=== PATIENT | female | born 1940 | race American Indian/Alaskan Native ===

== ENCOUNTER 2019-03-24 09:10 | Emergency (ER) | payer SELFPAY ==
[2019-03-24] MEDS ORDERED: TORADOL IV ONE (09:34)
[2019-03-24] MEDS ORDERED: DILAUDID IV ONE (09:35)
[2019-03-24] MEDS ORDERED: COREG PO ONE (09:35)
--- NOTE | 2019-03-24 09:38 | Emergency Department Report ---
ED Headache HPI - General Chief Complaint: Headache Stated Complaint: HEADACHE Time Seen by Provider: 03/24/19 09:20 Source: patient Exam Limitations: no limitations - History of Present Illness Initial Comments: 78-year-old female has a history of hypertension, breast cancer currently in remission presents to the Hospital complaints of headache since yesterday evening. Pain is in the front part of her head and radiates to the top. It is constant with a aggravating or alleviating factors. Pain rated 10/10 in intensity. No nausea, vomiting, acute visual changes, or focal weakness/numbness reported. Symptoms started after receiving intra-articular injections to her knees for chronic pain. Patient states she was warned that her sugar and her blood pressure may increase after the injection. She has had similar injections in the past without these side effects. Patient has taken Percocet 5/325 mg without improvement in headache. She did not have her blood pressure medication carvedilol 12.5 mg twice a day dose today. Allergies/Adverse Reactions: Allergies Iodinated Contrast- Oral and IV Dye Allergy (Verified 03/24/19 09:23) Hives Penicillins Allergy (Verified 03/24/19 09:23) Hives diphenhydramine [From Benadryl] Adverse Reaction (Verified 03/24/19 09:23) Unknown Home Medications: Ambulatory Orders Carvedilol [Coreg] 12.5 mg PO BID 03/24/19 Donepezil [Aricept] 5 mg PO HS 03/24/19 Levothyroxine [Synthroid] 25 mcg PO QDAY 03/24/19 Oxybutynin Xl [Ditropan Xl] 5 mg PO DAILY 03/24/19 Rosuvastatin Calcium [Crestor] 40 mg PO HS 03/24/19 amLODIPine [Norvasc] 5 mg PO DAILY #30 tab 03/24/19 oxyCODONE /ACETAMINOPHEN [Percocet 5/325] 1 tab PO BID PRN 03/24/19 ED Review of Systems ROS: Stated complaint: HEADACHE Other details as noted in HPI Comment: All other systems reviewed and negative ED Past Medical Hx - Past Medical History Previous Medical History?: Yes Hx Hypertension: Yes Hx Diabetes: Yes - Surgical History Past Surgical History?: Yes Additional Surgical History: Colon resection - Social History Smoking Status: Former Smoker Substance Use Type: None - Medications Home Medications: Home Medications Medication Instructions Recorded Confirmed Last Taken Type Carvedilol [Coreg] 12.5 mg PO BID 03/24/19 03/24/19 03/24/19 History Donepezil [Aricept] 5 mg PO HS 03/24/19 03/24/19 Unknown History Levothyroxine [Synthroid] 25 mcg PO QDAY 03/24/19 03/24/19 Unknown History Oxybutynin Xl [Ditropan Xl] 5 mg PO DAILY 03/24/19 03/24/19 Unknown History Rosuvastatin Calcium [Crestor] 40 mg PO HS 03/24/19 03/24/19 Unknown History amLODIPine [Norvasc] 5 mg PO DAILY #30 tab 03/24/19 Unknown Rx oxyCODONE /ACETAMINOPHEN [Percocet 1 tab PO BID PRN 03/24/19 03/24/19 03/24/19 History 5/325] ED Physical Exam - General Limitations: No Limitations - Other Other exam information: General: No limitations, patient is alert in no acute distress Head exam: Atraumatic, normocephalic Eyes exam: Normal appearance, pupils equal reactive to light, extraocular movements intact ENT: Moist mucous membrane, normal oropharynx Neck exam: Normal inspection, full range of motion, no meningismus nontender Respiratory exam: Clear to auscultation bilateral, no wheezes, rales, crackles Cardiovascular: Normal rate and rhythm, systolic murmur Abdomen: Soft, nondistended, and nontender, with normal bowel sounds, no rebound, or guarding Extremity: Full range of motion normal inspection no deformity Back: Normal Inspection, full range of motion, no tenderness Neurologic: Alert, oriented x3, cranial nerves intact, no motor or sensory deficit, [id number] function intact Psychiatric: normal affect, normal mood Skin: Warm, dry, intact ED Course Vital Signs 03/24/19 03/24/19 03/24/19 09:17 09:37 09:41 Temperature 97.9 F Pulse Rate 63 Respiratory 18 16 Rate Blood Pressure 207/94 Blood Pressure [Left] O2 Sat by Pulse 98 100 Oximetry 03/24/19 03/24/19 03/24/19 09:45 10:01 10:13 Temperature Pulse Rate 62 65 Respiratory 16 Rate Blood Pressure 213/90 209/110 209/110 Blood Pressure 213/90 [Left] O2 Sat by Pulse 100 99 Oximetry 03/24/19 03/24/19 03/24/19 10:15 10:35 10:45 Temperature Pulse Rate Respiratory Rate Blood Pressure 230/101 230/110 217/99 Blood Pressure [Left] O2 Sat by Pulse 99 99 99 Oximetry 03/24/19 03/24/19 03/24/19 11:00 11:15 11:31 Temperature Pulse Rate Respiratory Rate Blood Pressure 211/80 211/80 217/99 Blood Pressure [Left] O2 Sat by Pulse 100 98 99 Oximetry 03/24/19 03/24/19 03/24/19 11:45 12:22 12:46 Temperature Pulse Rate 58 L 75 70 Respiratory 16 16 Rate Blood Pressure 221/84 Blood Pressure 191/79 189/92 [Left] O2 Sat by Pulse 100 97 Oximetry - Reevaluation(s) Reevaluation #1: 03/24/19 13:37 BP improved down to a systolic in 180s. Patient states that her blood pressure typically was 140s to 180s systolic. She reports her headache has improved with ED treatment. She has a scheduled visit with her primary care doctor tomorrow and her property developer is affiliated with [facility]. ED Medical Decision Making - Lab Data Result diagrams: 03/24/19 09:25 03/24/19 09:25 Lab Results 03/24/19 03/24/19 03/24/19 Range/Units 09:21 09:25 09:25 WBC 6.1 (4.5-11.0) K/mm3 RBC 4.22 (3.65-5.03) M/mm3 Hgb 12.9 (10.1-14.3) gm/dl Hct 38.5 (30.3-42.9) % MCV 91 (79-97) fl MCH 31 (28-32) pg MCHC 34 (30-34) % RDW 14.5 (13.2-15.2) % Plt Count 225 (140-440) K/mm3 Lymph % (Auto) 10.7 L (13.4-35.0) % [place] % (Auto) 3.8 (0.0-7.3) % Eos % (Auto) 0.0 (0.0-4.3) % Baso % (Auto) 0.5 (0.0-1.8) % Lymph # 0.7 L (1.2-5.4) K/mm3 [place] # 0.2 (0.0-0.8) K/mm3 Eos # 0.0 (0.0-0.4) K/mm3 Baso # 0.0 (0.0-0.1) K/mm3 Seg Neutrophils % 85.0 H (40.0-70.0) % Seg Neutrophils # 5.2 (1.8-7.7) K/mm3 Sodium 141 (137-145) mmol/L Potassium 4.4 (3.6-5.0) mmol/L Chloride 103.6 (98-107) mmol/L Carbon Dioxide 25 (22-30) mmol/L Anion Gap 17 mmol/L BUN 17 (7-17) mg/dL Creatinine 0.8 (0.7-1.2) mg/dL Estimated GFR > 60 ml/min BUN/Creatinine Ratio 21 % Glucose 125 H (65-100) mg/dL POC Glucose 131 H (70-105) Calcium 10.6 H (8.4-10.2) mg/dL - Radiology Data Radiology results: report reviewed ct head: naf - Medical Decision Making Patient's symptoms improved with ED treatment. Blood pressure also improved with additional treatment. Patient states that 2 of her blood pressure medications were recently discontinued by her property developer that she does not recall the names of the meds. Patient will be started on Norvasc and she is encouraged to follow up with her primary care doctor tomorrow as scheduled. She'll be provided a copy of her workup today to take to her doctor - Differential Diagnosis hypertensive headache, hypertensive emergency, ICH, mass, Critical Care Time: No Critical care attestation.: If time is entered above; I have spent that time in minutes in the direct care of this critically ill patient, excluding procedure time. ED Disposition Clinical Impression: Uncontrolled hypertension Headache Qualifiers: Headache chronicity pattern: acute headache Intractability: not intractable Disposition: DC-01 TO HOME OR SELFCARE Is pt being admited?: No Does the pt Need Aspirin: No Condition: Stable Instructions: Hypertension (ED), Acute Headache (ED) Additional Instructions: Take the medication as prescribed. Continue your Percocet as needed for pain. Follow up with your doctor or the clinic/doctor provided. Return if symptoms worsen as indicated by your discharge instructions Prescriptions: amLODIPine [Norvasc] 5 mg PO DAILY #30 tab Referrals: your primary care, doctor [Other] - 03/25/19 your, property developer [Other] - 3-5 Days Time of Disposition: 13:41
[2019-03-24 09:42] LABS: Basophils % (Auto) 0.5 % (0.0-1.8); Hematocrit 38.5 % (30.3-42.9); Hemoglobin 12.9 gm/dl (10.1-14.3); Lymphocytes # (Auto) 0.7 K/mm3 (1.2-5.4); Lymphocytes % (Auto) 10.7 % (13.4-35.0); Mean Corpuscular HGB Conc 34 % (30-34); Mean Corpuscular Volume 91 fl (79-97); Monocytes # (Auto) 0.2 K/mm3 (0.0-0.8); Monocytes % (Auto) 3.8 % (0.0-7.3); Platelet Count 225 K/mm3 (140-440); Red Blood Count 4.22 M/mm3 (3.65-5.03); Red Cell Distribution Width 14.5 % (13.2-15.2)
[2019-03-24 09:59] LABS: BUN/Creatinine Ratio 21; Blood Urea Nitrogen 17 mg/dL (7-17); Calcium 10.6 mg/dL (8.4-10.2); Hemolysis Index 10
[2019-03-24] MEDS ORDERED: COMPAZINE IV ONE (10:00)
--- NOTE | 2019-03-24 11:19 | Cat Scan Report ---
CT HEAD WITHOUT CONTRAST: HISTORY: ca. TECHNIQUE: Sequential 2.5mm CT images. COMPARISON: none. FINDINGS: Cerebral Parenchyma: Within normal limits. Cerebellum: Within normal limits. Brainstem: Within normal limits. Ventricles: Normal. Sella: Normal. Extra-axial spaces: Normal. Basal Cisterns: Normal. Intracranial Hemorrhage: None. Midline Shift: None. Calvarium: Normal. Sinuses: Normal. Mastoid Air Cells: Normal. Visualized Orbits: Normal. IMPRESSION: Cranial CT scan within normal limits.
[2019-03-24] MEDS ORDERED: APRESOLINE IV ONE (11:38)
[2019-03-24] MEDS ORDERED: NORVASC PO ONE (13:37)
[2019-03-24 13:55] VITALS: BP 185/81
== END 2019-03-24 13:59 | disposition home or self-care (01) ==
LOC: ED 09:10
DX: I10 Essential (primary) hypertension (principal); E11.9 Type 2 diabetes mellitus without complications; Z87.891 Personal history of nicotine dependence; Z91.041 Radiographic dye allergy status; Z88.0 Allergy status to penicillin; Z88.6 Allergy status to analgesic agent
CPT/HCPCS: 36415; 70450; 80048; 82962; 85025; 96374; 96375; 99284; J0360; J0780; J1170; J1885

== ENCOUNTER 2020-05-25 17:50 | Emergency (ER) | payer OTHER ==
[2020-05-25 17:57] VITALS: BP 181/84
--- NOTE | 2020-05-25 18:36 | Event Note ---
ED Screening Note ED Screening Note: her doctors office called and advised her to be seen in the ED had a US of her right leg states her leg has been swollen and tingling in right toes no cp no sob PMHx HTN allergy: contrast, benadryl, penicillin This initial assessment/diagnostic orders/clinical plan/treatment(s) is/are subject to change based on patients health status, clinical progression and re- assessment by fellow clinical providers in the ED. Further treatment and workup at subsequent clinical providers discretion. Patient/guardian urged not to elope from the ED as their condition may be serious if not clinically assessed and managed. Initial orders include: labs US
--- NOTE | 2020-05-25 20:13 | Vascular Lab Report ---
DUPLEX DOPPLER LOWER EXTREMITY VEINS, RIGHT INDICATION / CLINICAL INFORMATION: RLE edema. TECHNIQUE: Duplex doppler imaging was performed through the veins of the right lower extremity using venous comp ression and other maneuvers. COMPARISON: None available. FINDINGS: RIGHT COMMON FEMORAL VEIN: Negative. RIGHT FEMORAL VEIN: Negative. RIGHT POPLITEAL VEIN: Negative. RIGHT CALF VEINS: Negative. ADDITIONAL FINDINGS: None. IMPRESSION: 1. No sonographic evidence for DVT in the right lower extremity. Signer Name: Richard Trimble MD Signed: 05/25/2020 8:09 PM Workstation Name: [id number]
[2020-05-25 20:14] LABS: Basophils % (Auto) 0.6 % (0.0-1.8); Eosinophils % (Auto) 0.2 % (0.0-4.3); Hematocrit 40.1 % (30.3-42.9); Hemoglobin 13.8 gm/dl (10.1-14.3); Lymphocytes # (Auto) 0.6 K/mm3 (1.2-5.4); Lymphocytes % (Auto) 13.4 % (13.4-35.0); Mean Corpuscular HGB Conc 34 % (30-34); Mean Corpuscular Volume 95 fl (79-97); Monocytes # (Auto) 0.1 K/mm3 (0.0-0.8); Platelet Count 197 K/mm3 (140-440); Red Blood Count 4.22 M/mm3 (3.65-5.03); Red Cell Distribution Width 13.3 % (13.2-15.2)
[2020-05-25 20:25] LABS: INR 1.03 (0.87-1.13); Partial Thromboplastin Time 25.7 Sec. (24.2-36.6)
[2020-05-25 20:32] LABS: Alanine Aminotransferase 14 units/L (7-56); Albumin 4.6 g/dL (3.9-5); BUN/Creatinine Ratio 18; Blood Urea Nitrogen 18 mg/dL (7-17); Calcium 10.6 mg/dL (8.4-10.2); Hemolysis Index 28
--- NOTE | 2020-05-25 23:03 | Emergency Department Report ---
ED General Adult HPI - General Chief complaint: Extremity Problem,Nontraumatic Stated complaint: POSS BLOOD CLOTS PUI?: No Time Seen by Provider: 05/25/20 22:53 Source: patient Mode of arrival: Ambulatory Limitations: No Limitations - History of Present Illness Initial comments: Patient is a 79-year-old female that presents emergency room with complaints of a possible clot in her right leg. Patient states 2 weeks ago she was seen at [facility] and her primary care called her and said that on the ultrasound that they found a blood clot in her right lower extremity. The patient states that her primary care told her to come to the ER for management of this blood clot. Patient denies leg pain. Patient denies leg swelling. Patient denies any symptoms. Patient denies calf tenderness. Patient denies chest pain or shortness of breath. Patient states that she was having lower extremity pain 2 weeks ago when she went to [facility]. Patient states that the lower extremity pain has resolved. Patient denies recent travel. Patient denies recent international travel. Patient denies exposure to the novel coronavirus. Patient denies sick contacts. Patient denies fever and chills. Patient denies cough. Patient denies diar saurav. Patient denies coming in contact with anybody with symptoms of the novel coronavirus. -: Sudden Severity scale (0 -10): 0 Improves with: none Worsens with: none Associated Symptoms: denies other symptoms. denies: confusion, chest pain, cough, diaphoresis, fever/chills, headaches, loss of appetite, malaise, nausea/vomiting, rash, seizure, shortness of breath, syncope, weakness - Related Data Home Medications Medication Instructions Recorded Confirmed Last Taken Levothyroxine [Synthroid] 25 mcg PO QDAY 03/24/19 03/24/19 Unknown Oxybutynin Xl [Ditropan Xl] 5 mg PO DAILY 03/24/19 03/24/19 Unknown Rosuvastatin Calcium [Crestor] 40 mg PO HS 03/24/19 03/24/19 Unknown carvediloL [Coreg] 12.5 mg PO BID 03/24/19 03/24/19 03/24/19 donepeziL [Aricept] 5 mg PO HS 03/24/19 03/24/19 Unknown oxyCODONE /ACETAMINOPHEN [Percocet 1 tab PO BID PRN 0603/24/19 03/24/19 5/325] Previous Rx's Medication Instructions Recorded Last Taken Type amLODIPine [Norvasc] 5 mg PO DAILY #30 tab 03/24/19 Unknown Rx Allergies Allergy/AdvReac Type Severity Reaction Status Date / Time Iodinated Contrast Media Allergy Hives Verified 03/24/19 09:23 [Iodinated Contrast- Oral and IV Dye] Penicillins Allergy Hives Verified 03/24/19 09:23 diphenhydramine AdvReac Unknown Verified 03/24/19 09:23 [From Benadryl] ED Review of Systems ROS: Stated complaint: POSS BLOOD CLOTS Other details as noted in HPI Constitutional: denies: chills, fever Eyes: denies: eye pain, eye discharge, vision change ENT: denies: ear pain, throat pain Respiratory: denies: cough, shortness of breath, wheezing Cardiovascular: denies: chest pain, palpitations Endocrine: no symptoms reported Gastrointestinal: denies: abdominal pain, nausea, diarrhea Genitourinary: denies: urgency, dysuria, discharge Musculoskeletal: denies: back pain, joint swelling, arthralgia Skin: denies: rash, lesions Neurological: denies: headache, weakness, paresthesias Psychiatric: denies: anxiety, depression Hematological/Lymphatic: denies: easy bleeding, easy bruising ED Past Medical Hx - Past Medical History Previous Medical History?: Yes Hx Hypertension: Yes Hx Diabetes: Yes - Surgical History Past Surgical History?: Yes Additional Surgical History: Colon resection - Family History Family history: no significant - Social History Smoking Status: Former Smoker Substance Use Type: None - Medications Home Medications: Home Medications Medication Instructions Recorded Confirmed Last Taken Type Levothyroxine [Synthroid] 25 mcg PO QDAY 03/24/19 03/24/19 Unknown History Oxybutynin Xl [Ditropan Xl] 5 mg PO DAILY 03/24/19 03/24/19 Unknown History Rosuvastatin Calcium [Crestor] 40 mg PO HS 03/24/19 03/24/19 Unknown History amLODIPine [Norvasc] 5 mg PO DAILY #30 tab 03/24/19 Unknown Rx carvediloL [Coreg] 12.5 mg PO BID 03/24/19 03/24/19 03/24/19 History donepeziL [Aricept] 5 mg PO HS 03/24/19 03/24/19 Unknown History oxyCODONE /ACETAMINOPHEN [Percocet 1 tab PO BID PRN 03/24/19 03/24/19 03/24/19 History 5/325] ED Physical Exam - General Limitations: No Limitations General appearance: alert, in no apparent distress - Head Head exam: Present: atraumatic, normocephalic - Eye Eye exam: Present: normal appearance - ENT ENT exam: Present: mucous membranes moist - Neck Neck exam: Present: normal inspection - Respiratory Respiratory exam: Present: normal lung sounds bilaterally. Absent: respiratory distress - Cardiovascular Cardiovascular Exam: Present: regular rate, normal rhythm. Absent: systolic murmur, diastolic murmur, rubs, gallop - GI/Abdominal GI/Abdominal exam: Present: soft, normal bowel sounds - Extremities Exam Extremities exam: Present: normal inspection - Back Exam Back exam: Present: normal inspection - Neurological Exam Neurological exam: Present: alert, oriented X3 - Psychiatric Psychiatric exam: Present: normal affect, normal mood - Skin Skin exam: Present: warm, dry, intact, normal color. Absent: rash ED Course Vital Signs 05/25/20 17:56 Temperature 98.1 F Pulse Rate 56 L Respiratory 16 Rate Blood Pressure 181/84 [Right] O2 Sat by Pulse 98 Oximetry - Reevaluation(s) Reevaluation #1: I discussed all results and clinical findings with patient. I discussed plan of care with patient. Patient agrees with plan of care. Patient is stable for discharge. Patient will be discharged home. Patient given discharge instructions. Patient voiced understanding of discharge instructions. 05/25/20 23:07 ED Medical Decision Making - Lab Data Result diagrams: 05/25/20 19:49 05/25/20 19:49 - Radiology Data Radiology results: report reviewed DUPLEX DOPPLER LOWER EXTREMITY VEINS, RIGHT INDICATION / CLINICAL INFORMATION: RLE edema. TECHNIQUE: Duplex doppler imaging was performed through the veins of the right lower ext remity using venous compression and other maneuvers. COMPARISON: None available. FINDINGS: RIGHT COMMON FEMORAL VEIN: Negative. RIGHT FEMORAL VEIN: Negative. RIGHT POPLITEAL VEIN: Negative. RIGHT CALF VEINS: Negative. ADDITIONAL FINDINGS: None. IMPRESSION: 1. No sonographic evidence for DVT in the right lower extremity. - Medical Decision Making Patient is a 79-year-old female that presents emergency room with complaints of needing management of a blood clot in her right lower extremity. Patient states she had a ultrasound 2 weeks ago and her primary care call [facility] to come to the emergency room immediately for management of this blood clot. Patient had labs done in the ER. Patient's labs are essentially unremarkable. Patient had ultrasound of the right lower extremity was negative for DVT. Patient does not require further emergency medical services. Patient stable for discharge. Patient discharged home. - Differential Diagnosis Ultrasound positive for DVT. Ultrasound mistake Critical care attestation.: If time is entered above; I have spent that time in minutes in the direct care of this critically ill patient, excluding procedure time. ED Disposition Clinical Impression: Right leg pain, Hypercalcemia Disposition: TO HOME OR SELFCARE Is pt being admited?: No Does the pt Need Aspirin: No Condition: Stable Instructions: Leg Cramps (ED), Leg Edema (ED), Leg Sprain (ED) Additional Instructions: Patient to follow-up with primary care in 2 to 3 days. Patient will need her calcium rechecked by her primary care.. Patient to rest. Patient to increase water. Patient to take Tylenol or ibuprofen as needed for pain. Patient to continue all medications. Patient to return to the ER if condition worsens, changes or new symptoms arise. Patient had a repeat ultrasound done and our ER and her ultrasound was negative for a clot or DVT. Referrals: MARIUM BARNETT MD [Primary Care Provider] - 2-3 Days Time of Disposition: 23:12
== END 2020-05-25 23:40 | disposition home or self-care (01) ==
LOC: ED 17:50
DX: M79.604 Pain in right leg (principal); E83.52 Hypercalcemia; I10 Essential (primary) hypertension; E11.9 Type 2 diabetes mellitus without complications; Z87.891 Personal history of nicotine dependence; Z79.899 Other long term (current) drug therapy; Z98.890 Other specified postprocedural states; Z88.0 Allergy status to penicillin; Z88.8 Allergy status to other drugs, medicaments and biological substances
CPT/HCPCS: 36415; 80053; 83880; 85025; 85610; 85730; 99283